=== PATIENT | male | born 1980 | race Caucasian/White ===

== ENCOUNTER 2018-03-20 19:16 | Emergency (ER) | payer OTHER ==
[~2018-03-20] VITALS: Ht 180.3 cm; Wt 107.0 kg
[2018-03-20 20:58] LABS: BASOPHILS % 0.9 % (0.0-2.0); EOSINOPHILS % 3.1 % (0.0-5.0); HEMATOCRIT. 45.2 % (42.0-52.0); HEMOGLOBIN. 15.2 g/dL (14.0-18.0); MEAN CORPUSCULAR HEMOGLOBIN 30.2 pg (28.0-32.0); MEAN CORPUSCULAR VOLUME 90.1 fL (80.0-94.0); MEAN PLATELET VOLUME 7.7 fl (7.4-10.4); MONOCYTES % 12.1 % (2.0-8.0); NEUTROPHILS % 65.9 % (40.0-76.0); PLATELET 311 x1000/uL (130-400); RED BLOOD CELL COUNT 5.02 mill/uL (4.7-6.1); RED CELL DISTRIBUTION WIDTH 13.3 % (11.6-14.6)
[2018-03-20 21:01] LABS: CHLORIDE 98 mEq/L (98-107)
[2018-03-20 22:02] VITALS: BP 132/88
== END 2018-03-20 22:21 | disposition home or self-care (01) ==
LOC: ER 19:36
DX: I16.0 Hypertensive urgency (principal); F17.210 Nicotine dependence, cigarettes, uncomplicated; Z71.6 Tobacco abuse counseling
CPT/HCPCS: 36415; 80053; 85025; 93005; 99285; 99406

== ENCOUNTER 2024-10-03 12:32 | Emergency (ER) | payer OTHER ==
[~2024-10-03] VITALS: Ht 182.9 cm; Wt 99.0 kg
[2024-10-03 12:34] VITALS: BP 108/69; PULSE 76; RESP 16; TEMP 36.4; O2SAT 100
[2024-10-03 14:02] VITALS: TEMP 97.6
[2024-10-03] MEDS: ACETAMINOPHEN 325MG TABLET PO ONE (14:02)
[2024-10-03] MEDS: TETANUS, DIPHTHERIA, PERTUSSIS VAC/PF 0.5ML (>10YR OLD) IM ONE (14:03)
[2024-10-03] MEDS: LIDOCAINE HCL/PF 1% 10 MG/ML 5ML VIAL INFIL ONE (14:40)
[2024-10-03] MEDS: BACITRACIN ZINC OINT UDPKT TOP ONE (14:41)
[2024-10-03] MEDS ORDERED: NEOM28.43 TP (15:29)
== END 2024-10-03 15:37 | disposition home or self-care (01) ==
LOC: ER 12:36
DX: S51.811A Laceration without foreign body of right forearm, initial encounter (principal); I10 Essential (primary) hypertension; Z90.49 Acquired absence of other specified parts of digestive tract; W01.0XXA Fall on same level from slipping, tripping and stumbling without subsequent striking against object, initial encounter; Y93.H2 Activity, gardening and landscaping; Y93.89 Activity, other specified; Y92.89 Other specified places as the place of occurrence of the external cause; Y99.8 Other external cause status
CPT/HCPCS: 90715; 12005; 90471; 99283; J2003; Z7610